=== PATIENT | female | born 1990 ===

== ENCOUNTER 2018-01-19 12:40 | Inpatient (IN) | payer OTHER ==
[~2018-01-19] VITALS: Ht 154.9 cm; Wt 66.2 kg
[2018-01-31] MEDS ORDERED: PRENATAL TABLE1 EAC1 PO (10:52)
[2018-01-31] MEDS ORDERED: STRESS FORMULA1 EAC2 PO (10:53)
[2018-01-31] MEDS ORDERED: FOLIC ACID1 MG PO (10:53)
== END 2018-02-02 10:57 | DRG 807 ==
LOC: LDR 01-31 08:23 → OB/GYN 01-31 19:03 → RECOVERY 02-07 13:45 → OB/GYN 02-07 13:45
PROC: 10E0XZZ Delivery of Products of Conception, External Approach (ICD-10-PCS; principal; 2018-01-31)
PROC: 0HQ9XZZ Repair Perineum Skin, External Approach (ICD-10-PCS; 2018-01-31)
PROC: 10907ZC Drainage of Amniotic Fluid, Therapeutic from Products of Conception, Via Natural or Artificial Opening (ICD-10-PCS; 2018-01-31)
PROC: 3E033VJ Introduction of Other Hormone into Peripheral Vein, Percutaneous Approach (ICD-10-PCS; 2018-01-31)
PROC: 4A1HXCZ Monitoring of Products of Conception, Cardiac Rate, External Approach (ICD-10-PCS; 2018-01-31)
DX: O70.0 First degree perineal laceration during delivery (principal); Z37.0 Single live birth; Z3A.39 39 weeks gestation of pregnancy

== ENCOUNTER 2018-01-30 22:11 | Outpatient (CLI) | payer OTHER ==
[2018-01-31] MEDS ORDERED: PRENATAL TABLE1 EAC1 PO (10:52)
[2018-01-31] MEDS ORDERED: FOLIC ACID1 MG PO (10:53)
[2018-01-31] MEDS ORDERED: STRESS FORMULA1 EAC2 PO (10:53)
== END 2018-01-31 09:40 | disposition still patient (30) ==
LOC: OBS/DEL 22:11
DX: O47.1 False labor at or after 37 completed weeks of gestation (principal); Z04.1 Encounter for examination and observation following transport accident; Z34.83 Encounter for supervision of other normal pregnancy, third trimester